=== PATIENT | female | born 2000 | race Caucasian/White ===

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

== ENCOUNTER → 2022-08-14 13:06 | Outpatient (CLI) | payer OTHER, SELFPAY ==
--- NOTE | 2022-08-14 13:13 | US_ITS ---
PROCEDURE: US PELVIC transabdominal CLINICAL INDICATION: Pelvic pain LMP 07/28/2022 COMPARISON: No exams were available for comparison FINDINGS: Uterus is anteverted and normal in shape and size measuring 8.5 centimeters x 3.7 centimeters x 4.3 centimeters. Endometrium is 11 millimeters. Both ovaries are seen and appear normal. The right ovary measures 2.25 cm x 1.97 cm by 2.77 cm. There is a 1.5 cm follicle in the right ovary. The left ovary appears normal. It measures 2.4 cm x 2.4 cm x 1.3 cm. There is no fluid in the cul-de-sac. IMPRESSION: 1. Normal-appearing uterus with a normal endometrial stripe. 2. Both ovaries are normal with a 1.5 cm follicle on the right ovary. 3. No fluid in the cul-de-sac. Dictated by: Luis Miguel Arshad MD 08/20/2022 14:19 Luis Miguel Arshad MD in [facility] 08/20/2022 14:19
== END ==
PROVIDERS: Visit Provider Obstetrics & Gynecology
DX: R10.2 Pelvic and perineal pain (principal)
CPT/HCPCS: 76856